=== PATIENT | male | born 1960 | race Caucasian/White ===

== ENCOUNTER 2020-06-23 10:28 | Outpatient (CLI) | payer OTHER, SELFPAY ==
--- NOTE | 2020-06-23 10:38 | XR_ITS ---
WS: [id number] Exam: XR knee RT 1-2V [id number] Date/Time of Exam: 06/23/2020 10:41 AM Reason For Exam: KNEE PAIN No fracture or dislocation. Soft tissue mass containing calcification noted in the region of the prep atellar bursa. 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 There are cystic cortical areas in the upper tibia and lower femur that may also be secondary to gout. Moderate joint effusion is noted. Tricompartmenta l degenerative changes. XR/XR knee RT -2V [id number] IMPRESSION: 1. No fracture or dislocation. 2. Bony changes in the distal femur and upper tibia that may be secondary to go uty arthritis. 3. Soft tissue mass with calcification identified just anterior to the patella that may be sequela from gouty tophi. 4. Superimposed moderate tricompartmental DJD.
== END 2020-06-23 10:29 | disposition home or self-care (01) ==
LOC: RAD 10:33
PROVIDERS: PCP Nurse Practitioner; Visit Provider Dermatology
DX: M17.11 Unilateral primary osteoarthritis, right knee (principal)
CPT/HCPCS: 73560

== ENCOUNTER 2023-07-18 12:22 | Emergency (ER) | payer MEDICAID, SELFPAY ==
[2023-07-18 12:30] VITALS: BP 115/77; PULSE 110; RESP 14; TEMP 36.5; O2SAT 97; BMI 22.1
--- NOTE | 2023-07-18 13:09 | ED_ITS ---
HPI - Extremity Problem General: Chief complaint: Extremity Injury, Upper Stated complaint: right wrist pain Time Seen by Provider: 07/18/23 13:03 Source: patient Mode of arrival: ambulatory Limitations: no limitations History of Present Illness: Patient is a very nice 63-year-old male with longstanding history of gout here for complaints of a gout flare to his right hand and wrist. Symptoms started approximately 2 to 3 days ago. He states he has had frequent gout flares here before and states his symptoms are identical. He at one point was on allopurinol therapy however no longer takes this stating he does not have a PCP and doesn't like to go to doctors . MD Complaint: extremity pain, extremity swelling, joint swelling and joint pain Onset (ago): day(s) Pain Consistency: constant Location: right and upper extremity Radiation: none Relieving factors: nothing Exacerbating factors: range of motion Associated symptoms: Reports no associated symptoms; Deny chest pain or fever(s) Context: history of gout Review of Systems Const: Denies: fever(s), chills, body aches, fatigue or malaise Card: Denies: chest pain Resp: Denies: dyspnea Musc: Reports: extremity pain (R hand), extremity swelling (R hand), joint pain (R wrist) and joint swelling (R wrist ) Neuro: Denies: numbness in extremities, weakness in extremities, sensory changes or dizziness Physical Exam Const: COMMON NORMALS: no acute distress, average body habitus, patient orie nted x3, no limitations, healthy appearing, alert and well nourished Resp: COMMON NORMALS: normal respiratory effort and clear to auscultation rosita aterally AUSCULTATION: clear to auscultation bilaterally Cardio: COMMON NORMALS: regular rate and regular rhythm RATE: regular rate RHYTHM: regular rhythm Extremity: COMMON NORMALS: capillary refill normal GENERAL: Yes normal exam except as noted RIGHT UPPER EXTREMITY: Yes wrist and Yes hand & digits OTHER: pt has edema and erythema affecting mainly R wrist extending into dorsal R hand consistent with an acute gout flare; no cellulitis, lymphangitic streaking, or concern for septic arthritis Neuro: COMMON NORMALS: patient oriented x3, moves all extremities, no focal motor deficits and no sensory deficits noted SENSORIUM/ORIENTATION: Yes alert Course Vital Signs: Vital signs: Vital Signs Temperature 97.7 F 07/18/23 12:30 Pulse Rate 98 02/19/24 13:46 Respiratory Rate 15 07/18/23 13:46 Blood Pressure 122/71 07/18/23 13:46 Pulse Oximetry 99 07/18/23 13:46 Oxygen Delivery Me thod Room Air 07/18/23 12:30 MDM - Extremity (Nontraumatic) Medical Decision Making Patient's history and physical exam is consistent with an acute gout flare of his right wrist and hand. He has had multiple previous identical flares. Patient will be given steroids and anti-inflammatories here. Will give him pain medications, indomethacin, and prednisone taper to go home with. Highly recommend he follows up with a primary care provider for further evaluation and better control of his gouty flares. Medical Records I reviewed the patient's medical records. No radiology studies performed this visit Discharge Plan Discharge Patient Disposition: Home Clinical Impression: Acute gout of right wrist Qualifiers: Gout etiology: unspecified cause Qualified Code(s): M10.9 - Gout, unspecified Condition: Stable Prescriptions: New prednisone 10 mg tablet 10 mg PO DAILY 10 Days Qty: 27 0RF Rx Instructions: 6 tabs on days 1-2, 5 tabs on days 3, 4 tabs on day 4, 3 tabs on day 5, 2 tabs on day 6, 1 tab on day 7 hydrocodone-acetaminophen 5-325 mg tablet 1 tab PO Q6H PRN (Reason: pain) Qty: 14 0RF indomethacin 50 mg capsule 50 mg PO TID Qty: 15 0RF Rx Instructions: administer with food or milk Discharge Orders: Discharge ED (Routine); Ordered 07/18/23 Ordered By: Wendi Maynard Patient Instructions: Gout, Opioid Safety, Pain Management Coding Level of Care Code ED Automotive Title Clerk for Gabby Hernandez
[2023-07-18] MEDS: methylPREDNISolone sod succ 125 mg/2 mL INJ IM (13:17)
[2023-07-18] MEDS: ketorolac 60 mg/2 mL INJ IM (13:17)
[2023-07-18 13:46] VITALS: BP 122/71; PULSE 98; RESP 15; O2SAT 99
== END 2023-07-18 13:47 | disposition home or self-care (01) ==
PROVIDERS: Emergency Provider Physician Assistant
DX: M10.9 Gout, unspecified (principal)
CPT/HCPCS: 96372; 99284; J1885; J2930

== ENCOUNTER 2023-11-30 16:49 | Emergency (ER) | payer SELFPAY ==
[2023-11-30 17:01] VITALS: BP 123/85; PULSE 104; RESP 16; O2SAT 95
--- NOTE | 2023-11-30 17:02 | ED_ITS ---
HPI - Extremity Injury (Lower) General: Chief Complaint: Extremity Problem,Nontraumatic Stated Complaint: Right foot swelling Time Seen by Provider: 11/30/23 17:01 History of Present Illness: 63-year-old male patient comes in today for swelling and redness to the left ankle. Patient has a history of gout in the ankle. Patient also have extensive systemic gout with multiple areas of tophi to the joints of the elbows knee and hands. Review of Systems General: Reports: 10 or more systems reviewed and unremarkable except in HPI and below Musc: Reports: joint pain and joint swelling Physical Exam Const: COMMON NORMALS: alert HENMT: COMMON NORMALS: normocephalic HEAD & SCALP: normocephalic Neck/C-Spine: COMMON NORMALS: full ROM Resp: COMMON NORMALS: normal respiratory effort and clear to auscultation bilaterally AUSCULTATION: clear to auscultation bilaterally Cardio: COMMON NORMALS: regular rate RATE: regular rate GI: COMMON NORMALS: Soft to palpation PALPATION: Yes Soft to palpation Back/Pelvis: COMMON NORMALS: thoracic and lumbar spine normal to inspection Extremity: RIGHT LOWER EXTREMITY: Yes foot & digits (Joint enlargement and redness to the joint extending to the foot) Neuro: SENSORIUM/ORIENTATION: Yes alert Skin: COMMON NORMALS: turgor normal GENERAL SKIN EXAM: turgor normal Course Vital Signs: Vital signs: Vital Signs Temperature 98.8 F 11/30/23 17:03 Pulse Rate 104 H 11/30/23 17:01 Respiratory Rate 16 11/30/23 17:01 Blood Pressure 123/85 11/30/23 17:01 Pulse Oximetry 95 11/30/23 17:01 Oxygen Delivery Me thod Room Air 11/30/23 17:01 MDM - Extremity Injury (Lower) Medical Decision Making Patient has a known history of gout. Patient has some significant tophi to the joints throughout his body. Patient has redness with tenderness to the right ankle with some redness extending out onto the foot. Pulses are intact. Cap refills intact. Patient is afebrile. Patient appears to have an acute flare of gout on top of chronic gout. Patient will be started on prednisone 40 mg daily for 7 days. Patient was given a loading dose of prednisone 60 mg in the ER. Patient was also given some indomethacin and hydrocodone for further relief. Reviewed exam with patient with recommendations for treatment and follow-up. Patient reported understanding. No radiology studies performed this visit Discharge Plan Discharge Patient Disposition: Home Clinical Impression: Gout Qualifiers: Gout site: ankle Gout etiology: unspecified cause Chronicity: unspecified Laterality: right Qualified Code(s): M10.9 - Gout, unspecified Condition: Stable Prescriptions: New prednisone 20 mg tablet 20 mg PO BID 7 Days Qty: 14 0RF Continued hydrocodone-acetaminophen 5-325 mg tablet 1 tab PO Q6H PRN (Reason: pain) Qty: 14 0RF indomethacin 50 mg capsule 50 mg PO TID Qty: 15 0RF Rx Instructions: administer with food or milk Discharge Orders: Discharge ED (Routine); Ordered 11/30/23 Ordered By: Valdo Thomas Discharge Diet: Usual diet Discharge Activity: Increase activity as tolerated Patient Instructions: Gout (ED), Opioid Safety Activity Restrictions/Additional Instructions: Medications as directed. Follow-up with primary care for further instructions. Coding Level of Care Code ED Martial Arts Instructor for Gabby Hernandez
[2023-11-30 17:03] VITALS: TEMP 37.1
[2023-11-30] MEDS: predniSONE 20 mg Tablet 60 MG PO (17:15)
[2023-11-30 17:21] VITALS: PULSE 101; O2SAT 97
== END 2023-11-30 17:22 | disposition home or self-care (01) ==
PROVIDERS: Emergency Provider Nurse Practitioner Family
DX: M10.9 Gout, unspecified (principal)
CPT/HCPCS: 99283; J7512

== ENCOUNTER 2024-03-17 14:47 | Emergency (ER) | payer MEDICARE, SELFPAY ==
[2024-03-17 14:54] VITALS: BP 131/80; PULSE 73; RESP 17; TEMP 36.3; O2SAT 98; BMI 21.2
--- NOTE | 2024-03-17 15:13 | CTR_ITS ---
PROCEDURE INFORMATION: Exam: CT Head Without Contrast Exam date and time: 03/17/2024 3:23 PM Age: 63 years old Clinical indication: Syncope and collapse; Additional info: Syncope vs chi TECHNIQUE: Imaging protocol: Computed tomography of the head without contrast. Radiation optimization: All CT scans at this facility use at least one of these dose optimization techniques: automated exposure control; mA and/or kV adjustment per patient size (includes targeted exams where dose is matched to clinical indication); or iterative reconstruction. COMPARISON: No relevant prior studies available. RADIATION DOSE METRICS: Total DLP (mGy-cm): 1166.38 FINDINGS: Brain: No evidence of intra-axial or extra-axial hemorrhage. No mass effect or midline shift. Jay-white differentiation is maintained. Basilar cisterns are patent. Cerebral ventricles: No hydrocephalus. Paranasal sinuses: The visualized paranasal sinuses are well aerated. Mastoid air cells: The visualized mastoids and middle ears are clear. Bones: Calvarium is intact. No evidence of acute fracture. Soft tissues: No gross soft tissue abnormality. CT/CT head wo con* [id number] IMPRESSION: 1. No acute intracranial abnormality.
--- NOTE | 2024-03-17 15:13 | XRR_ITS ---
PROCEDURE INFORMATION: Exam: XR Chest Exam date and time: 03/17/2024 3:27 PM Age: 63 years old Clinical indication: Other: Syncope? TECHNIQUE: Imaging protocol: Radiologic exam of the chest. Views: 1 view. COMPARISON: No relevant prior studies available. FINDINGS: Lungs: No focal consolidation. Scattered calcified granulomas noted. Pleural spaces: No evidence of pneumothorax. No evidence of pleural effusion. Heart/Mediastinum: Cardiomediastinal silhouette is within normal limits. Bones/joints: No evidence of acute osseous abnormality. XR/XR chest 1V portable [id number] IMPRESSION: 1. No acute cardiopulmonary abnormality.
--- NOTE | 2024-03-17 15:13 | ECG_ITS ---
[email or web address] Test Date: 2024-03-17 Pat Name: Maria Luisa Anaya Department: Room: Gender: Male [employer]: : 1960 Requested By: Sue Franks Order Number: [id number] Reading MD: MITCHELL HURLEY Measurements Intervals [place] Rate: 83 P: 63 MD: 176 QRS: 31 QRSD: 85 T: 63 QT: 362 QTc: 428 Interpretive Statements SINUS RHYTHM POSSIBLE RIGHT VENTRICULAR CONDUCTION DELAY [RSR (QR) IN V1/V2] No previous ECG available for comparison Electronically Signed On 03-17-2024 18:07:43 CDT by MITCHELL HURLEY [id number]
[2024-03-17 15:14] VITALS: BP 128/76; PULSE 79; RESP 18; O2SAT 97
[2024-03-17 15:44] LABS: Glucose Point of Care 140 mg/dL (70-110)
[2024-03-17 15:56] LABS: Basophils % 0.1 %; Eosinophils # 0.1 10^3/uL (0.0-0.8); Eosinophils % 0.7 %; Hematocrit 38.2 % (37-53); Lymphocytes # 1.2 10^3/uL (0.8-4.8); Lymphocytes % 17.6 %; Mean Corpuscular HGB Conc 32.7 g/dL (30-55); Mean Corpuscular Hemoglobin 28.7 pg (27-33); Mean Corpuscular Volume 87.6 fl (82-101); Mean Platelet Volume 9.5 fL (7.4-10.4); Monocytes # 0.4 10^3/uL (0.2-0.9); Monocytes % 5.7 %; Neutrophils % 75.6 %; Nucleated Red Blood Cells % 0 %; Platelet Count 265 10^3/cmm (157-399); Red Blood Count 4.36 10^6/uL (3.85-5.65); Red Cell Distribution Width 13.7 % (12.1-15.1); White Blood Count 6.88 10^3/uL (3.29-11.43)
[2024-03-17 16:14] LABS: Troponin(5th) Baseline 9 ng/L (0-15)
[2024-03-17 16:24] LABS: Alanine Aminotransferase 14 U/L (0-41); Albumin Level 4.4 g/dL (3.5-5.2); Alkaline Phosphatase 93 U/L (40-130); Anion Gap 16.8 (5-19); Aspartate Amino Transferase 21 U/L (0-40); Blood Urea Nitrogen 15 mg/dL (8-23); Calcium 8.9 mg/dL (8.5-10.5); Carbon Dioxide 24 mmol/L (22-29); Chloride 102 mmol/L (98-107); Globulin 2.6 g/dL (1.3-4.6); Glomerular Filtration Rate 98.3 mL/min (90-130); Glucose 153 mg/dL (65-115); NT Pro B Type Natriuretic Pept 141 pg/mL (0-125); Osmolality Calculated 292 mOsm/kg (285-295); Potassium 3.8 mmol/L (3.5-5.1); Sodium 139 mmol/L (136-145); Total Bilirubin 0.3 mg/dL (0.15-1.2)
[2024-03-17 16:30] VITALS: BP 126/88; PULSE 97; RESP 18; O2SAT 99
--- NOTE | 2024-03-17 16:47 | W.ED.SYNCOPE ---
HPI - Syncope General: Chief Complaint: Syncope Stated Complaint: fall (blow to head) / Unconcious Time Seen by Provider: 03/17/24 15:12 History of Present Illness: Brigido Anaya is a 63-year-old man that presents to the emergency department with syncope. Patient reports he woke up this morning and felt fine. He ended up mulching his yard and ended up with a family for [place] festival. While there, he ate a slice of pizza and was watching his children play in a bounce house when he developed nausea. He went outside because he thought he was going to vomit and then had a syncopal episode. It was witnessed by 1 bystander. He fell head forward into the bounce house. He remembers waking up and was confused on details surrounding the events. He did strike his head on the bounce house. He has a hematoma and abrasion to the left forehead. He denies other extremity, muscle, joint pain. He denies chest pain or palpitations. Denies shortness of breath. Denies iqra pain but did have nausea. He did go home initially and had an episode of diarrhea. Patient denies medical history other than gout. Denies cardiac history, denies stroke history, denies cancer history. Associated symptoms: Reports nausea; Deny abdominal pain, chest pain, fever(s) or headache(s) Related Data Previous Rx's Medication Instructions Recorded hydrocodone 5 mg-acetaminophen 325 1 tab PO Q6H PRN pain #14 tabs 11/30/23 mg tablet indomethacin 50 mg capsule 50 mg PO TID #15 caps 11/30/23 Allergies Allergy/AdvReac Type Severity Reaction Status Date / Time No Known Allergies Allergy Verified 11/30/23 17:03 Review of Systems General: Reports: 10 or more systems reviewed and unremarkable except in HPI and below Const: Denies: fever(s), chills, change in appetite, change in weight, fatigue or malaise Card: Reports: syncope; Denies: chest pain, palpitations, irregular heart rhythm, edema, swelling of feet/ankles, dyspnea on exertion, orthopnea or leg pain with exertion Resp: Denies: dyspnea, productive cough, non-productive cough, wheezing, stridor or chest congestion GI: Reports: nausea, vomiting and diarrhea; Denies: abdominal pain, dysphagia, constipation, bloating, GI cramping or hematochezia : Denies: flank pain, dysuria, urinary frequency, urinary urgency, urinary hesitancy, oliguria or hematuria Musc: Denies: neck pain, back pain, extremity pain, joint pain, joint swelling, joint redness, joint warmth or muscle weakness Skin/Breast: Denies: rash, pruritus, erythema, photosensitivity or new lesions Neuro: Denies: headache(s), numbness in extremities, weakness in extremities, sensory changes, lack of coordination, difficulty walking, frequent falls, dizziness, confusion, Slurred speech present, difficulty communicating thoughts, seizure-like activity or involuntary movements Endo: Denies: polyuria, polydipsia or tired all the time Chandra/Lymph: Denies: easy bruising or easy bleeding Physical Exam Const: COMMON NORMALS: no acute distress, patient oriented x3 and alert GENERAL APPEARANCE: cooperative ORIENTATION/CONSCIOUSNESS: Yes awake, Yes oriented to person, Yes oriented to place and Yes oriented to time HENMT: COMMON NORMALS: normocephalic HEAD & SCALP: normocephalic, abrasion left frontal and hematoma left frontal Neck/C-Spine: COMMON NORMALS: full ROM GENERAL: Yes normal visual inspection Lymph: LYMPHATIC: no lymphadenopathy noted Chest: COMMONS NORMALS: normal inspection of the chest Breast/axilla inspection: Yes no chest deformity, asymmetry, normal contours, no nodules, masses, tenderness Resp: COMMON NORMALS: normal respiratory effort, No retractions, No use of accessory muscles and clear to auscultation bilaterally EFFORT & INSPECTION: Yes able to speak in complete sentences and Yes symmetric chest movement AUSCULTATION: clear to auscultation bilaterally Cardio: COMMON NORMALS: regular rate, regular rhythm and Peripheral pulses 2+ throughout RATE: regular rate RHYTHM: regular rhythm PERIPHERAL PULSES: Peripheral pulses 2+ throughout GI: COMMON NORMALS: Soft to palpation and No hepatosplenomegaly present INSPECTION: Yes normal to inspection AUSCULTATION: Yes Hyperactive bowel sounds present PALPATION: Yes Soft to palpation, No Tenderness to palpation present (GI) and Yes No hepatosplenomegaly present RECTAL EXAM: Yes deferred Extremity: COMMON NORMALS: normal to inspection GENERAL: Yes normal exam except as noted Neuro: COMMON NORMALS: patient oriented x3 SENSORIUM/ORIENTATION: Yes alert, Yes oriented to person, Yes oriented to place and Yes oriented to time CRANIAL NERVES: Yes CN normal except as noted Psych: COMMON NORMALS: mental status grossly normal, Normal thought process present, cooperative, activity/motor behavior normal, denies homicidal ideation and denies suicidal ideation THOUGHT PROCESS: Normal thought process present Skin: COMMON NORMALS: no rashes or lesions noted, no wounds and turgor normal GENERAL SKIN EXAM: no rashes or lesions noted and turgor normal Course Vital Signs: Vital signs: Vital Signs Temperature 97.4 F L 03/17/24 14:54 Pulse Rate 91 03/17/24 17:30 Respiratory Rate 17 03/17/24 17:00 Blood Pressure 124/81 03/17/24 17:30 Pulse Oximetry 97 03/17/24 17:30 Oxygen Delivery Me thod Room Air 03/17/24 17:30 MDM - Syncope Medical Decision Making Patient was evaluated today for syncopal episode. Patient relates a story that he had a piece of pizza, got a little overheated and nauseated and walked outside. When he got out there he ended up having a syncopal episode falling forward and striking his head. Fortunately he is not anticoagulated or on antiplatelet therapy. The differential diagnosis for this would be arrhythmia, syncope, vasovagal syncope, cardiac event, intracranial hemorrhage or stroke. Patient underwent evaluation that included CT head, chest x-ray, EKG, laboratory studies including a troponin series. Patient's heart score 2-3. Patient EKGs were performed at 1531 and 1727. At 1531 with sinus rhythm with a ventricular rate of 83 beats a minute and a QTc of 402. There was no ectopy, ST elevation or abnormal T wave inversion. Patient's EKG did not change at 1727. His laboratory studies revealed no leukocytosis, anemias, electrolyte abnormalities. He did have a baseline troponin of 9 with a delta of 0.8. He and I reviewed the laboratory evaluation. While I cannot exclude a cardiac event, I do not have any evidence directly pointing at a cardiac event. His syncope could be related to being overheated, dehydrated, start of a GI bug. He did have nausea vomiting and diarrhea. We did obtain a CT head since he did have head trauma. CT head was normal. He does have a hematoma to the left parietal and he was provided an ice pack. He needs to follow-up with primary care for recheck of todays complaints. He should return to the emergency department for new concerning or worsening symptoms. Lab Data 03/17/24 15:42 03/17/24 15:42 Radiology Impressions Chest X-Ray 03/17/24 15: IMPRESSION: 1. No acute cardiopulmonary abnormality. Head CT 03/17/24 15:13 IMPRESSION: 1. No acute intracranial abnormality. Laboratory Results WBC 6.88 10^3/uL (3.29-11.43) 03/17/24 15:42 RBC 4.36 10^6/uL (3.85-5.65) 03/17/24 15:42 Hgb 12.50 g/dL (11.27-16.99) 03/17/24 15:42 Hct 38.2 % (37-53) 03/17/24 15:42 MCV 87.6 fl (82-101) 03/17/24 15:42 MCH 28.7 pg (27-33) 03/17/24 15:42 MCHC 32.7 g/dL (30-55) 03/17/24 15:42 RDW 13.7 % (12.1-15.1) 03/17/24 15:42 Plt Count 265 10^3/cmm (157-399) 03/17/24 15:42 MPV 9.5 fL (7.4-10.4) 03/17/24 15:42 Neut % (Auto) 75.6 % 03/17/24 15:42 Lymph % (Auto) 17.6 % 03/17/24 15:42 [place] % (Auto) 5.7 % 03/17/24 15:42 Eos % (Auto) 0.7 % 03/17/24 15:42 Baso % (Auto) 0.1 % 03/17/24 15:42 Neut # (Auto) 5.20 10^3/uL (1.8-7.7) 03/17/24 15:42 Lymph # (Auto) 1.2 10^3/uL (0.8-4.8) 03/17/24 15:42 [place] # (Auto) 0.4 10^3/uL (0.2-0.9) 03/17/24 15:42 Eos # (Auto) 0.1 10^3/uL (0.0-0.8) 03/17/24 15:42 Baso # (Auto) 0.0 10^3/uL (0.0-0.1) 03/17/24 15:42 Nucleated RBC % (auto) 0 % 03/17/24 15:42 Nucleated RBCs # 0.0 /100WBC 03/17/24 15:42 Sodium 139 mmol/L (136-145) 03/17/24 15:42 Potassium 3.8 mmol/L (3.5-5.1) 03/17/24 15:42 Chloride 102 mmol/L (98-107) 03/17/24 15:42 Carbon Dioxide 24 mmol/L (22-29) 03/17/24 15:42 Anion Gap 16.8 (5-19) 03/17/24 15:42 BUN 15 mg/dL (8-23) 03/17/24 15:42 Creatinine 0.8 mg/dL (0.7-1.2) 03/17/24 15:42 GFR Calculation 98.3 mL/min (90-130) 03/17/24 15:42 Glucose 153 mg/dL (65-115) H 03/17/24 15:42 POC Glucose 140 mg/dL (70-110) H 03/17/24 15:41 Calculated Osmolality 292 mOsm/kg (285-295) 03/17/24 15:42 Calcium 8.9 mg/dL (8.5-10.5) 03/17/24 15:42 Total Bilirubin 0.3 mg/dL (0.15-1.2) 03/17/24 15:42 AST 21 U/L (0-40) 03/17/24 15:42 ALT 14 U/L (0-41) 03/17/24 15:42 Alkaline Phosphatase 93 U/L (40-130) 03/17/24 15:42 Troponin T Baseline 9 ng/L (0-15) 03/17/24 15:42 Troponin T 120 Minute 8.82 ng/L (0-15) 03/17/24 17:33 Delta Troponin T -0.18 ABS# (0-10) L 03/17/24 17:33 NT-Pro-B Natriuret Pep 141 pg/mL (0-125) H 03/17/24 15:42 Total Protein 7.0 g/dL (6.6-8.7) 03/17/24 15:42 Albumin 4.4 g/dL (3.5-5.2) 03/17/24 15:42 Globulin 2.6 g/dL (1.3-4.6) 03/17/24 15:42 All radiology interpretation(s) finalized by discharge Discharge Plan Discharge Patient Disposition: Home Clinical Impression: Vasovagal syncope Condition: Stable Prescriptions: No Action hydrocodone-acetaminophen 5-325 mg tablet 1 tab PO Q6H PRN (Reason: pain) Qty: 14 0RF indomethacin 50 mg capsule 50 mg PO TID Qty: 15 0RF Rx Instructions: administer with food or milk Discharge Orders: Discharge ED (Routine); Ordered 03/17/24 Ordered By: Sue Frances Discharge Diet: Advance as tolerated Discharge Activity: Resume usual activity Patient Instructions: Syncope (ED), Pain Management Activity Restrictions/Additional Instructions: Please follow-up with your primary care doctor. Call this week to get an appointment. Please return to the emergency department if you develop any chest pain, chest tightness, lightheadedness or dizziness, repeat syncope, or any other new concerning or worsening symptoms Coding Level of Care Code ED Director Of Strategic Partnerships for Gabby Hernandez
[2024-03-17] MEDS: acetaminophen 325 mg Tablet 650 MG PO (16:57)
[2024-03-17 17:00] VITALS: BP 137/84; PULSE 96; RESP 17; O2SAT 99
--- NOTE | 2024-03-17 17:27 | ECG_ITS ---
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
[2024-03-17 17:30] VITALS: BP 124/81; PULSE 91; O2SAT 97
[2024-03-17 17:59] LABS: Troponin 5 2HR 8.82 ng/L (0-15)
[2024-03-17 18:00] LABS: Troponin 5 2HR Delta -0.18 ABS# (0-10)
[2024-03-17 18:21] VITALS: BP 119/80; PULSE 79; O2SAT 96
== END 2024-03-17 18:22 | disposition home or self-care (01) ==
PROVIDERS: Emergency Provider Nurse Practitioner
DX: R55 Syncope and collapse (principal)
CPT/HCPCS: 36415; 36416; 70450; 71045; 80053; 82962; 83880; 84484; 85025; 93005; 99285

== ENCOUNTER 2024-03-23 14:37 | Emergency (ER) | payer MEDICARE, SELFPAY ==
[2024-03-23 15:05] VITALS: BP 136/94; PULSE 110; RESP 16; TEMP 36.9; O2SAT 98
--- NOTE | 2024-03-23 17:44 | XRR_ITS ---
PROCEDURE INFORMATION: Exam: XR Right Wrist Exam date and time: 03/23/2024 5:58 PM Age: 63 years old Clinical indication: Pain; Wrist; Right; Patient HX: HX of gout; Additional info: Pain with swelling TECHNIQUE: Imaging protocol: Radiologic exam of the right wrist. Views: 3 or more views. COMPARISON: No relevant prior studies available. FINDINGS: Bones/joints: Moderate arthrosis of the triscaphe joint and distal radioulnar joint. Mild dorsal subluxation of the ulna may be present relative to the radius. Calcification/chondrocalcinosis of the TFC noted. Soft tissues: [id number] soft swelling overlying the ulnar styloid. XR/XR wrist RT min 3V* [id number] IMPRESSION: 1. No acute fracture identified. 2. Moderate soft swelling over the distal ulna, mild dorsal subluxation of the ulna due to traumatic or chronic degenerative etiology.
[2024-03-23 18:03] VITALS: BP 118/83; PULSE 111; RESP 16; O2SAT 97
--- NOTE | 2024-03-23 18:32 | W.ED.EXTPRO ---
HPI - Extremity Problem General: Chief complaint: Extremity Problem,Nontraumatic Stated complaint: Right hand pain and swelling Time Seen by Provider: 03/23/24 16:44 History of Present Illness: 63-year-old male presents to the emergency department chief complaint of having right wrist pain and discomfort. Patient Dors is a previous history of gout in the right wrist right arm patient endorses that he has been out of his medications for his right eye reports of moderate swelling denies any obvious injury does report difficulty with bending the wrist due to pain reporting no other associated issues. Associated symptoms: Deny chest pain, fever(s) or rash Related Data Previous Rx's Medication Instructions Recorded hydrocodone 5 mg-acetaminophen 325 1 tab PO Q6H PRN pain #14 tabs 11/30/23 mg tablet indomethacin 50 mg capsule 50 mg PO TID #15 caps 11/30/23 colchicine 0.6 mg capsule 0.6 mg PO BID #20 caps 03/23/24 hydrocodone 5 mg-acetaminophen 325 1 tab PO Q8H PRN pain (scale score 03/23/24 mg tablet 7-10) #10 tabs indomethacin 50 mg capsule 50 mg PO TID #30 caps 03/23/24 prednisone 10 mg tablet 10 mg PO BID #10 tabs 03/23/24 Allergies Allergy/AdvReac Type Severity Reaction Status Date / Time No Known Allergies Allergy Verified 03/23/24 15:10 Review of Systems General: Reports: 10 or more systems reviewed and unremarkable except in HPI and below Const: Denies: fever(s), chills, fatigue or malaise Eyes: Denies: change in vision or blurry vision Card: Denies: chest pain or palpitations Resp: Denies: dyspnea or productive cough GI: Denies: abdominal pain, nausea or vomiting : Denies: flank pain Musc: Reports: extremity pain, extremity swelling and joint swelling Skin/Breast: Denies: rash or pruritus Neuro: Denies: headache(s) Psych: Denies: anxiety or depression Chandra/Lymph: Denies: easy bleeding All/Imm: Denies: urticaria, throat swelling or facial swelling Physical Exam Const: COMMON NORMALS: no acute distress, patient oriented x3 and healthy appearing HENMT: COMMON NORMALS: normocephalic and atraumatic HEAD & SCALP: normocephalic and atraumatic Eye: COMMON NORMALS: Equal, round and reactive pupils present and EOMs intact bilaterally PUPIL: Yes Equal, round and reactive pupils present Neck/C-Spine: COMMON NORMALS: full ROM, supple and no JVD Lymph: LYMPHATIC: no lymphadenopathy noted Chest: COMMONS NORMALS: normal inspection of the chest and normal palpation of entire chest wall Resp: COMMON NORMALS: normal respiratory effort, No retractions and clear to auscultation bilaterally EFFORT & INSPECTION: Yes able to speak in complete sentences and Yes symmetric chest movement AUSCULTATION: clear to auscultation bilaterally Cardio: COMMON NORMALS: no JVD, regular rate and regular rhythm RATE: regular rate RHYTHM: regular rhythm GI: COMMON NORMALS: Normal to inspection, nondistended, normoactive bowel sounds present, Soft to palpation and non-tender INSPECTION: Yes normal to inspection PALPATION: Yes Soft to palpation : COMMON NORMALS: Yes no CVA tenderness BLADDER/KIDNEY EXAM: Yes no CVA tenderness Back/Pelvis: COMMON NORMALS: no CVA tenderness Extremity: COMMON NORMALS: negative for normal to inspection, negative for full ROM and negative for no joint enlargement (Moderate swelling discomfort appreciated deformity neurovascular tact dista) Neuro: COMMON NORMALS: patient oriented x3, CN's II-XII intact bilaterally, moves all extremities and no focal motor deficits Psych: COMMON NORMALS: mental status grossly normal, Normal thought process present, cooperative and normal affect THOUGHT PROCESS: Normal thought process present Skin: COMMON NORMALS: no rashes or lesions noted NARRATIVE SKIN EXAM: Is warm to touch neurovascular tact distally to the right wrist concerning for gouty arthritis GENERAL SKIN EXAM: no rashes or lesions noted Course Vital Signs: Vital signs: Vital Signs Temperature 98.4 F 03/23/24 15:05 Pulse Rate 111 H 03/23/24 18:03 Respiratory Rate 16 03/23/24 18:03 Blood Pressure 118/83 03/23/24 18:03 Pulse Oximetry 97 03/23/24 18:03 Oxygen Delivery Me thod Room Air 03/23/24 18:03 MDM - Extremity (Nontraumatic) Medical Decision Making X-ray imaging was obtained no obvious acute underlying bony abnormality was appreciated patient will be treated for his gouty arthritis with some colchicine as well as some Toradol I will be providing prescriptions for colchicine or allopurinol outpatient. Advised for the follow-up primary care in 3 to 5 days and was to return the interim if any of his symptoms persist or worse. XR interpretation done by ED provider, pending radiology final review Discharge Plan Discharge Patient Disposition: Home Clinical Impression: Gout attack Qualifiers: Gout site: wrist Gout etiology: unspecified cause Laterality: right Qualified Code(s): M10.9 - Gout, unspecified Condition: Stable Prescriptions: New colchicine 0.6 mg capsule 0.6 mg PO BID Qty: 20 0RF indomethacin 50 mg capsule 50 mg PO TID Qty: 30 0RF Rx Instructions: administer with food or milk hydrocodone-acetaminophen 5-325 mg tablet 1 tab PO Q8H PRN (Reason: pain (scale score 7-10)) Qty: 10 0RF prednisone 10 mg tablet 10 mg PO BID Qty: 10 0RF No Action hydrocodone-acetaminophen 5-325 mg tablet 1 tab PO Q6H PRN (Reason: pain) Qty: 14 0RF indomethacin 50 mg capsule 50 mg PO TID Qty: 15 0RF Rx Instructions: administer with food or milk Discharge Orders: Discharge ED (Routine); Ordered 03/23/24 Ordered By: Brock Lopez Discharge Diet: Cardiac Discharge Activity: Increase activity as tolerated Patient Instructions: Low Purine Diet (ED), Gout (ED), Opioid Safety, Pain Management Activity Restrictions/Additional Instructions: Take medication as prescribed please further follow-up with primary care in 3 to 5 days in which return the interim if any of your symptoms persist or worse. Coding Level of Care Code ED Delivery Supervisor for Gabby Hernandez
[2024-03-23] MEDS: colchicine 0.6 mg Tablet PO (19:04)
[2024-03-23] MEDS: ketorolac 30 mg/mL INJ IM (19:04)
[2024-03-23 19:05] VITALS: BP 118/88; PULSE 110; RESP 18; O2SAT 97
== END 2024-03-23 18:58 | disposition home or self-care (01) ==
PROVIDERS: Emergency Provider Emergency Medicine
DX: M10.9 Gout, unspecified (principal)
CPT/HCPCS: 73110; 96372; 99284; J1885

== ENCOUNTER 2025-05-05 11:21 | Emergency (ER) | payer MEDICARE, SELFPAY ==
[2025-05-05 11:23] VITALS: BP 133/91; PULSE 101; RESP 14; TEMP 36.6; O2SAT 99; BMI 22.1
[2025-05-05 11:28] VITALS: BP 133/91; PULSE 101; RESP 14; O2SAT 99
--- OUTSIDE RECORDS SUMMARY | 2025-05-05 11:28 | XMS_ITS | Clinical Summary ---
Author Organization [facility] Address [address] [facility] Attn: Epic Prelude ADT [place] [address] Care Team Providers Care Cosmetic Maker Name Role Phone Unavailable Primary Care Provider Unavailabl e Allergies No known active allergies Medications indomethacin (INDOCIN SR) 75 mg Extended Release capsule Take 1 Capsule (75 mg) by mouth daily. 20 Capsule 0 05/30/2018 Active Social History Tobacco Use Types Packs/Day Years Used Date Smoking Tobacco: Never Smokeless Tobacco: Never Sex and Gender Information Value Date Recorded Sex Assigned at Not on file Legal Sex Male 10:44 AM DIGITAL ARCHIVIST Gender Identity Not on file Sexual Orientation Not on file Last Filed Vital Signs Vital Sign Reading Time Taken Comments Blood Pressure 94/62 05/30/2018 11:00 PM DIGITAL ARCHIVIST Pulse 90 05/30/2018 11:00 PM DIGITAL ARCHIVIST Temperature 37.1 C (98.8 F) 05/30/2018 6:20 PM DIGITAL ARCHIVIST Respiratory Rate 19 05/30/2018 6:20 PM DIGITAL ARCHIVIST Oxygen Saturation - - Inhaled Oxygen Concentration - - Weight 62.8 kg (138 lb 7.2 oz) 05/30/2018 6:20 P M DIGITAL ARCHIVIST Height - - Body Mass Index - - Plan of Treatment Health Maintenance Due Date Last Done Comments DTAP/TDAP/TD VACCINES (1 - Tdap) 1981 COLORECTAL SCREENING 2007 Colorectal Cancer Screening 2007 FIT-DNA Q 3 years 2007 FIT/FOBT Q 1 year 2007 Flex Sig/CT Colonography Q 5 years 2007 ZOSTER VACCINE (1 of 2) 2012 INFLUENZA VACCINE (#1) 2024 RSV VACCINE (60+ or ) (1 - 1-dose 75+ series) 2037
--- OUTSIDE RECORDS SUMMARY | 2025-05-05 11:28 | XMS_ITS | Clinical Summary ---
Author Organization [facility] Address [address] [place] [address] Phone Care Team Providers Care Service Station Operator Name Role Phone Unavailable Primary Care Provider Unavailabl e Allergies No known active allergies Medications indomethacin (INDOCIN SR) 75 mg Extended Release capsule Take 1 Capsule (75 mg) by mouth daily. 20 Capsule 05/30/2018 Active Social History Tobacco Use Types Packs/Day Years Used Date Smoking Tobacco: Never Smokeless Tobacco: Never Sex and Gender Information Value Date Recorded Sex Assigned at Not on file Legal Sex Male 5:01 AM LEARNING DEVELOPER Gender Identity Not on file Sexual Orientation Not on file Last Filed Vital Signs Vital Sign Reading Time Taken Comments Blood Pressure 94/62 05/30/2018 11:00 PM LEARNING DEVELOPER Pulse 90 05/30/2018 11:00 PM LEARNING DEVELOPER Temperature 37.1 C (98.8 F) 05/30/2018 6:20 PM LEARNING DEVELOPER Respiratory Rate 19 05/30/2018 6:20 PM LEARNING DEVELOPER Oxygen Saturation 97% 05/30/2018 11:00 PM LEARNING DEVELOPER Inhaled Oxygen Concentration - - Weight 62.8 kg (138 lb 7.2 oz) 05/30/2018 6:20 P M LEARNING DEVELOPER Height - - Body Mass Index - [...]
--- OUTSIDE RECORDS SUMMARY | 2025-05-05 11:28 | XMS_ITS | Encounter Summary ---
Author Organization [facility] Address [address] [facility] Attn: [place] [address] Care Team Providers Care Senior Executive Assistant Name Role Phone Unavailable Primary Care Provider Unavailabl e Encounter Details Date Type Department Care Team (Late st Contact Info) Description 08/07/1999 Outpatient Historical Yair Ruiz MD [address] [place] [address] [address] [place] [address] Social History Tobacco Use Types Packs/Day Years Used Date Smoking Tobacco: Never Assessed Sex and Gender Information Value Date Recorded Sex Assigned at Not on file 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
--- NOTE | 2025-05-05 11:31 | ED_ITS ---
HPI - Extremity Problem General: Chief complaint: Extremity Injury, Upper Stated complaint: pain/swelling in left hand Time Seen by Provider: 05/05/25 11:25 History of Present Illness: 65-year-old man with a history of gout w ho presents the emergency room with a gout flare. He is having pain and swelling and redness in his right hand. He says it started in his fifth digit and has moved into the others at the base of his fingers. No injury. No fever. Related Data Previous Rx's ?Medication ?Instructions ?Recorded colchicine 0.6 mg capsule 0.6 mg PO BID #20 caps 05/14 prednisone 10 mg tablet 10 mg PO BID #10 tabs colchicine 0.6 mg tablet 0.6 mg PO DAILY 5 days #5 ta bs 05/05/25 prednisone 20 mg tablet 60 mg (3 x 20 mg) PO DAILY 5 days 05/05/25 #15 tabs Allergies Allergy/AdvReac Type Severity Reaction Status Date / Time No Known Allergies Allergy Verified 05/05/25 11:28 Review of Systems Narrative: Constitutional symptoms: Negative except as documented in HPI. Skin symptoms: Negative except as documented in HPI. Eye symptoms: Negative except as documented in HPI. ENMT symptoms: Negative except as documented in HPI. Respiratory symptoms: Negative except as documented in HPI. Cardiovascular symptoms: Negative except as documented in HPI. Gastrointestinal symptoms: Negative except as documented in HPI. Genitourinary symptoms: Negative except as documented in HPI. Musculoskeletal symptoms: Negative except as documented in HPI. Neurologic symptoms: Negative except as documented in HPI. Psychiatric symptoms: Negative except as documented in HPI. Endocrine symptoms: Negative except as documented in HPI. PFS ED PFSH: Social History Smoking and tobacco/nicotine status: tobacco/nicotine user, details unknown Physical Exam Narrative: EXAM NARRATIVE: General: Alert, no acute distress. Skin: warm and dry Head: Normocephalic Neck: Trachea midline Eye: Extraocular movements are intact. Ears, nose, mouth and throat: Oral mucosa moist Respiratory: Respirations are non-labored Musculoskeletal: Normal ROM. Tenderness at the base of his fingers particularly fifth. Mild redness and swelling Gastrointestinal: Abdomen does not appear distended Neurological: Alert and oriented, No focal neurological deficit observed. Psychiatric: Cooperative, appropriate mood & affect. Course Vital Signs: Vital signs: Vital Signs Temperature 97.8 F 05/05/25 11:23 Pulse Rate 101 H 05/05/25 11:28 Respiratory Rate 14 05/05/25 11:28 Blood Pressure 133/91 05/05/25 11:28 Pulse Oximetry 99 05/05/25 11:28 Oxygen Delivery Me thod Room Air 05/05/25 11:23 MDM - Extremity (Nontraumatic) Medical Decision Making Medical decision making Patient's reason for coming to the emergency room: Hand pain, gout attack Social determinants: Disabled. I reviewed the patient's medical record. Most recent visit was to family medicine for a gout attack. I reviewed the patient's current home meds Patient on no chronic medications. Alternate historians: None Differential diagnosis: including but not limited to and based on the above HPI, review of systems and physical exam: This seems to be fairly clear gout. Does not appear cellulitic. No trauma. No lab work or x-rays indicated. Assessment and plan: Gout flare - Discharged home - Discussed plan with patient. Answered any questions. - Evaluation and treatment of this problem were appropriate in the emergency setting. No radiology studies performed this visit Discharge Plan Discharge Patient Disposition: Home Clinical Impression: Gout attack Condition: Stable Prescriptions: New prednisone 20 mg tablet 60 mg PO DAILY 5 Days Qty: 15 0RF colchicine 0.6 mg tablet 0.6 mg PO DAILY 5 Days Qty: 5 0RF No Action colchicine 0.6 mg capsule 0.6 mg PO BID Qty: 20 0RF prednisone 10 mg tablet 10 mg PO BID Qty: 10 0RF Discharge Orders: Discharge ED (Routine); Ordered 05/05/25 Ordered By: Bela Lucas Discharge Diet: Usual diet Discharge Activity: Increase activity as tolerated Patient Instructions: Opioid Safety, Pain Management, Patient Portal & Mark Instructions Activity Restrictions/Additional Instructions: Thank you for choosing [facility] for your healthcare needs today. You have been screened and evaluated and felt safe for discharge. Health conditions do change or evolve sometimes and as such it is important that you follow up with your Primary Doctor to be re checked, 3-5 days is a general good time frame for follow up. You are always welcome to return to the ED for re assessment if your symptoms are worsening or you have new concerns Print Language: Australian Coding Level of Care Code ED Retail Marketing Coordinator for Gabby Hernandez
== END 2025-05-05 11:40 | disposition home or self-care (01) ==
PROVIDERS: Emergency Provider Emergency Medicine
DX: M10.9 Gout, unspecified (principal)
CPT/HCPCS: 99283